=== PATIENT | male | born 1990 | race Caucasian/White ===

== ENCOUNTER 2017-02-25 09:14 | Emergency (ER) | payer MEDICAID ==
[~2017-02-25] VITALS: Ht 177.8 cm; Wt 62.0 kg
--- NOTE | 2017-02-25 09:17 | ED.REPORT ---
HPI-General Illness Date of Service Feb 25, 2017 ED Provider: Dr. Cervantes Pt is a 26 y/o male w/ a hx of schizoaffective disorder, Asperger's disorder, medical non-compliance, presenting to the ED via EMS due to episodes of tachycardia onset several weeks ago. The patient was sent from [facility] ([facility]) due to episodes of tachycardia up to 160 bpm. The PA who sent him here told us he has a long history of psychiatric illness and medical noncompliance and has been experiencing episodes of asymptomatic tachycardia up to 160 bpm for weeks now. She found out that they would he would be staying there for another 90 days so she decided to send him here for a workup. She told us Zyprexa helps to sedate him for workup. The patient does not wish to answer any questions or provide a history and is uncooperative with the workup. Nursing Notes Stated Complaint: TACHYCARDIA Nursing Notes Reviewed: Yes Allergies: Uncoded Allergies: UNKNOWN (Allergy, Unknown, 02/25/17) General Time Seen by MD: 09:15 Chief Complaint Other (tachycardia) Hx Obtained From: EMS Unable to Obtain Hx: Uncooperative Arrived By: Ambulance Past Medical History Past Medical History Schizoaffective disorder Pervasive developmental disorder Asperger's syndrome Medical noncompliance Past Surgical History Unknown Smoking History Unknown if Ever Smoker Ambulatory Status Independent Unable to Obtain History Past medical history, Past surgical history, Family history, Smoking history, Social history Unable to Obtain Due to: Uncooperative Review of Systems Unable to Obtain ROS Uncooperative Physical Exam Vital Signs Vital Signs Date Time Temp Pulse Resp B/P Pulse Ox O2 Delivery O2 Flow Rate FiO2 02/25/17 12:53 36.0 125 18 110/81 100 Room Air 02/25/17 09:29 120 24 128/84 98 Room Air Initial VS: Reviewed, Vital signs abnormal Head / Eyes: Atraumatic, Normocephalic, PERRL ENT: Mucous membranes moist, Conjunctiva normal, No scleral icterus Neck: Supple, Full range of motion Respiratory: Breath sounds normal, Clear to auscultation, No respiratory distress Cardiovascular: Regular rate & rhythm, Heart sounds normal, Intact distal pulses Abdomen / GI: Soft, No distention Extremities: Vascular intact, Neuro intact, No swelling Skin: Warm, Dry, No cyanosis Neurologic: Alert, Oriented, Nonfocal General/Constitutional: Awake, Alert, No acute distress, Not toxic appearing PSYCH: Does not wish to provide a history or answer questions Does not wish to give bloodwork or EKG Agitated Pacing around room Interpretation & Diagnostics Lab Results Interpretation Result Diagram: 02/25/17 1120 02/25/17 1120 Test 02/25/17 11:20 White Blood Count 7.6th/mm3 (3.8-10.1) Red Blood Count 4.84mil/mm3 (4.40-5.80) Hemoglobin 13.9g/dL (13.8-17.2) Hematocrit 42.0% (41.0-50.0) Mean Corpuscular Volume 86.8fL (81-100) Mean Corpuscular Hemoglobin 28.7pg (27.0-35.0) Mean Corpuscular Hemoglobin Concent 33.1% (32.0-37.0) Red Cell Distribution Width 13.7% (12.3-15.4) Platelet Count 330bil/L (150-400) Neutrophils (%) (Auto) 71.5% (40-74) Lymphocytes (%) (Auto) 19.5% (14-46) Monocytes (%) (Auto) 8.0% (4-12) Eosinophils (%) (Auto) 0.8% (0-5) Basophils (%) (Auto) 0.1% (0-3) Sodium Level 140mEq/L (134-144) Potassium Level 4.5mEq/L (3.5-5.2) Chloride Level 102mEq/L (97-108) Carbon Dioxide Level 26mmol/L (18-29) Blood Urea Nitrogen 17mg/dL (6-20) Creatinine 0.68mg/dL (0.76-1.27) Estimat Glomerular Filtration Rate 148mL/min (>59) Glucose Level 102mg/dL (60-99) Calcium Level 9.7mg/dL (8.5-10.1) Magnesium Level 2.0mg/dL (1.6-2.6) Total Bilirubin 0.5mg/dL (0.0-1.2) Aspartate Amino Transf (AST/SGOT) 17U/L (0-50) Alanine Aminotransferase (ALT/SGPT) 12U/L (0-44) Alkaline Phosphatase 67U/L (25-150) Troponin T 0.010ug/L (0.0-0.011) Total Protein 7.7g/dL (6.4-8.4) Albumin 4.2g/dL (3.4-5.0) Triglycerides Level 74mg/dL (0-149) Cholesterol Level 190mg/dL (100-199) LDL Cholesterol, Calculated 105.200mg/dL (0-99) VLDL Cholesterol 14.800mg/dL HDL Cholesterol 70mg/dL (>39) Cholesterol/HDL Ratio 2.71 (0.0-4.4) Thyroid Stimulating Hormone (TSH) 1.910uIU/mL (0.450-4.500) Free Thyroxine 1.51ng/dL (0.82-1.77) Hepatitis C Comment . ECG Interpretation ECG Interpretation: Sinus tachycardia rate [address] segment or T wave changes Time: 10:30 Interpreted by: ED physician X-Ray Chest Interpretation Chest Xray Interpretation: IMPRESSION: No acute cardiopulmonary disease process. Dictated by: Neris Johnson MD, PhD on 02/25/2017 at 10:15 Approved by: Neris Johnson MD, PhD on 02/25/2017 at 10:16 View: Portable, 1 view Interpretation / Wet Read by: Interpret - Radiologist Re-Eval/Medical Decision Med Decision/Clinical Course 26-year-old male history of schizoaffective and Asperger's and mental health facility for grave disability sent in by mental health facility for tachycardia up to 160 for the last 2 weeks. It comes and goes. He is asymptomatic. The patient denies any chest pain or difficulty breathing to me but refuses to answer further questions. Tachycardic to 120s here. He declined any IV or fluids. His EKG showed sinus tachycardia. His labs are stable. Discussed with food products tester who thought likely sinus tachycardia due to dehydration. Given patient declined any further treatment and there is no serious cause identified for his tachycardia and he is stable, patient we discharged back to his mental health facility with plans for oral hydration and follow up with primary doctor and possible cardiology referral if symptoms persist. Time of Eval: 10:10 Re-Evaluation/Progress Note: Code levy called due to uncooperativity with medication and workup. Time of Eval: 12:54 Re-Evaluation/Progress Note: Pt is sleeping. HR is 120 bpm. Time of Eval: 13:58 Re-Evaluation/Progress Note: Pt rechecked. Informed pt of plan for treatment. Pt understands and agrees with plan for treatment. F/U instructions and RTER warnings given. All questions addressed. Consultation : Referral / Consult Name: Erika Uriarte MD Consulted With: Cardiology Call Returned at: 13:15 Terrazzo Finisher Helper: Agrees with eval, Agrees with plan Note: Recommends IV fluids to attempt to decrease HR. Regardless send home and f/u with cardiology if indicated. Counseled Regarding: Diagnosis, Lab results, Need for follow-up, When/why to return to ED Discharge & Departure Primary Impression: Sinus tachycardia Disposition: Home Discharge Condition All VS Reviewed: Yes Condition: Stable Patient Instructions: Palpitations (ED) Additional Instructions: The cause of your fast heart rate is unclear at this moment. You have refused an IV or medication treatment today. Follow-up with your primary care doctor. If your fast heart rate persists cardiology is willing to see you. Return to the emergency department if you experience chest pain, trouble breathing, passing out, profuse sweating, heart palpitations, or for other concerning symptoms. [employer] Attestation Portions of this note were transcribed by John Trevino. I, Dr. Cervantes personally performed the history, physical exam and medical decision-making; I reviewed and confirmed the accuracy of the information in the transcribed note. Signed by Lacy Dodge, 02/25/17 - 1000 Lew Cervantes MD Feb 25, 2017 09:16 JOHN TREVINO Feb 25, 2017 09:46
[2017-02-25] MEDS ORDERED: 0.9% Sodium Chloride 1,000 ML IV ONE (09:19)
[2017-02-25 09:29] VITALS: BP 128/84; PULSE 120; RESP 24; O2SAT 98
[2017-02-25] MEDS ORDERED: OLANZapine Zydis ODT 5 mg Tablet PO ONE (10:00)
--- NOTE | 2017-02-25 10:17 | DRSVH ---
PROCEDURE: X-RAY CHEST ONE VIEW, PORTABLE ([id number]) INDICATIONS: chest pain TECHNIQUE: One view of the chest was acquired. COMPARISON: None. FINDINGS: Surgical changes and devices: None. Lungs and pleura: No pleural effusions or pneumothorax. Lungs are clear. Mediastinum: Mediastinal contours appear normal. Heart size is normal. Bones and chest wall: No suspicious bony lesions. Overlying soft tissues appear unremarkable. IMPRESSION: No acute cardiopulmonary disease process. Dictated by: Neris Johnson MD, PhD on 02/25/2017 at 10:15 Approved by: Neris Johnson MD, PhD on 02/25/2017 at 10:16
[2017-02-25 11:35] LABS: BASOPHILS % (AUTO) 0.1 % (0-3); EOSINOPHILS % (AUTO) 0.8 % (0-5); Mean Corpuscular Hemoglobin 28.7 pg (27.0-35.0); Mean Corpuscular Volume 86.8 fL (81-100); NEUTROPHILS % (AUTO) 71.5 % (40-74); Platelet Count 330 bil/L (150-400)
[2017-02-25 11:59] LABS: TROPONIN T 0.01 ug/L (0.0-0.011)
[2017-02-25 12:53] VITALS: BP 110/81; PULSE 125; RESP 18; O2SAT 100
[2017-02-26 05:10] LABS: Hepatitis A Antibody IgM Negative (Negative); Hepatitis B Core Antibody IgM Negative (Negative)
[2017-02-26 08:17] LABS: TOTAL TRIIODOTHYRONINE 113 ng/dL (71-180)
== END 2017-02-25 13:52 | disposition home or self-care (01) ==
LOC: EDBD 09:14 → SED 09:14
DX: R00.0 Tachycardia, unspecified (principal)
CPT/HCPCS: 36415; 71010; 80053; 80061; 83735; 84439; 84443; 84480; 84484; 85025; 86705; 86709; 87340; 87341; 93005; 96372; 99285; G0472; J2060; S0166